=== PATIENT | female | born 1980 | race Two or more races ===

== ENCOUNTER 2020-11-28 09:25 | Emergency (ER) | payer OTHER ==
[~2020-11-28] VITALS: Ht 157.5 cm; Wt 68.0 kg
--- NOTE | 2020-11-28 09:45 | NUR ---
[email or web address] ,medical screening exam in progress
[2020-11-28] MEDS ORDERED: IBUPROFEN 800 MG TABLET PO ONE (10:00)
[2020-11-28] MEDS ORDERED: IBUPROFEN 800 MG TABLET ONE (10:03)
--- NOTE | 2020-11-28 10:03 | NUR ---
Patient ambulated to bathroom to void, pending urine specimen@this time.
[2020-11-28 10:14] LABS: *URINE HCG, QUAL NEG (NEGATIVE)
[2020-11-28] MEDS ORDERED: IBUP-1957 PO (11:36)
--- NOTE | 2020-11-28 11:47 | NUR ---
Patient discharged to home in stable condition witrh steady gait. Written and verbal after care instructions given to patient in Welsh with [employer] interpreter Enrique (ER regostration staff). Patient verbalized understanding and compliance of instructions. Stressed follow up with primary doctor or return to ER for worsening s/s. Copies of all tests' results were given to patient.
== END 2020-11-28 11:51 | disposition home or self-care (01) ==
LOC: ER 09:25
DX: S09.90XA Unspecified injury of head, initial encounter (principal); S40.012A Contusion of left shoulder, initial encounter; V03.90XA Pedestrian on foot injured in collision with car, pick-up truck or van, unspecified whether traffic or nontraffic accident, initial encounter; Y92.410 Unspecified street and highway as the place of occurrence of the external cause; J98.11 Atelectasis; M41.9 Scoliosis, unspecified; K80.20 Calculus of gallbladder without cholecystitis without obstruction
CPT/HCPCS: 70450; 71250; 72125; 73030; 84703; A4663